=== PATIENT | female | born 1935 | race Caucasian/White ===

== ENCOUNTER 2019-09-24 09:54 | Outpatient (REF) | payer OTHER, SELFPAY ==
[2019-09-24 20:27] LABS: Abs Immature Grans 0.01 k/cumm (0.0-0.09); Absolute Basophil Count 0.03 k/cumm (0.0-0.2); Absolute Eosinophil Count 0.05 k/cumm (0.0-0.7); Absolute Lymphocyte Count 2.57 k/cumm (1.2-3.4); Absolute Monocyte Count 0.52 k/cumm (0.11-0.7); Basophils % 0.5; Eosinophils % 0.8; HGB 12.1 g/dL (12.0-15.5); Immature Grans % 0.2 %; Mean Corp. HGB Concentration 31.8 g/dL (32.0-36.0); Mean Corpuscular Hemoglobin 29.7 pg (27.0-33.0); Mean Corpuscular Volume 93.1 fL (80-95); Mean Platelet Volume 11.5 fL (8.0-11.0); Monocytes % 8.7; Neutrophils % 46.8; Platelet Count 236 x1000/uL (130-400); RBC 4.08 m/cumm (4.00-5.20); RBC Distribution Width 13.3 % (11.7-14.6); White Blood Cell Count 5.98 k/cumm (4.4-10.8)
[2019-09-24 20:50] LABS: ALT 20 U/L (14-59); AST 16 U/L (15-37); Alkaline Phosphatase 44 U/L (46-116); Anion Gap 8.4 mmol/L (3-11); BUN 19 mg/dL (7-18); Bilirubin, Total 0.6 mg/dL (0.2-1.0); CO2 28.6 mmol/L (21.0-32.0); CREATININE 0.87 mg/dL (0.55-1.02); Calcium 9.5 mg/dL (8.5-10.1); Calculated LDL 169 mg/dL (<100); Chloride 107 mmol/L (98-107); Cholesterol 257 mg/dL (<200); Glucose 92 mg/dL (74-106); HDL Cholesterol 72 mg/dL (40-60); Potassium 4.1 mmol/L (3.5-5.1); Sodium 144 mmol/L (136-145); Total Protein 7.3 g/dL (6.4-8.2); Triglyceride 81 mg/dL (<150)
== END 2019-09-24 10:14 ==
LOC: NCHCN 09:54
PROVIDERS: Visit Provider Nurse Practitioner Community Health
DX: R01.1 Cardiac murmur, unspecified (principal)
CPT/HCPCS: 80053; 80061; 84443; 85025

== ENCOUNTER 2020-06-20 18:34 | Emergency (ER) | payer OTHER, SELFPAY ==
[2020-06-20 18:43] VITALS: BP 176/62; PULSE 63; RESP 18; TEMP 36.4; O2SAT 98
--- NOTE | 2020-06-20 19:00 | DI.CT_ITS ---
EXAM: CT HEAD WO CLINICAL HISTORY: trauma, left forehead wound. TECHNIQUE: Imaging Protocol: Axial computed tomography images with coronal and sagittal reformatted images were created and reviewed COMPARISON: No exams were available for comparison FINDINGS: Ventricles and Extra axial spaces: Normal in size and morphology for the patient's age. Hemorrhage: None. Cerebral parenchyma: No acute territorial infarct is seen. There are areas of decreased attenuation white matter most consistent with chronic microvascular ischemic disease. Midline shift: None. Brainstem/Cerebellum: Normal. Calvarium: Normal. Visualized Paranasal sinuses/Mastoids: Clear. Soft Tissues: Mild swelling in the left periorbital region. IMPRESSION: No acute intracranial process. RADIATION DOSE DELIVERED: 653.92mGy.cm Total DLP DATA REPOSITORY: All CT scans at this facility are submitted to the National Radiology Data Registry (NRDR) Dose Index Registry (DIR) with the [employer] (ACR). RADIATION OPTIMIZATION: All CT scans at this facility use at least one of these dose optimization te chniques: automated exposure control; mA and/or kV adjustment per patient size (includes targeted exa ms where dose is matched to clinical indication); or iterative reconstruction.
--- NOTE | 2020-06-20 19:02 | ED.GENADUL_ITS ---
Discharge Plan Disposition Patient Disposition: HOME Condition: Stable Discharge Details Clinical Impression: Laceration Primary Care Provider: Unknown,Unknown ED Provider: Billie Negron Discharge Instructions Instructions: Care For Your Stitches (ED), Facial Laceration (ED) Additional Instructions: Please return immediately to the emergency department if you develop any new or worsening symptoms, if your condition does not improve as expected, or if you become otherwise concerned. It is extremely important that you call soon as possible to make an appointment to be seen in follow-up for this visit by your primary care doctor. You will need to have your stitches removed in 5 days as we discussed. Discharge Data Discharge Date/Time-TO BE ENTERED AT DEPARTURE: 06/20/20 21:25 Medical Decision Making Deja Peraza is an 84 y/o woman without reported history of medical problems who presented to the emergency department with forehead laceration after mechanical fall. On exam patient is well and nontoxic-appearing. Full range of motion of the neck, nontender to palpation. 3 cm linear laceration over the left eyebrow. Mild ecchymosis of the left orbit. No tenderness palpation of the orbit. Neurologically nonfocal. Concern for possible intracranial trauma, laceration needing suture repair. Exam/history at this time is not consistent with acute emergent cervical spine trauma, nonmechanical etiology of fall, significant trauma to the extremities, thorax, abdomen, facial fracture. Patient unsure of last tetanus, thinks it may be greater than 10 years ago, no immunizations in record. Plan for CT head, tetanus, laceration repair. CT head negative per radiology. Laceration repaired without complication, please see procedure note. I had a lengthy discussion with Patient regarding return to emergency department precautions, home care, and importance of outpatient follow-up. Pt verbalizes understanding of the plan and is amenable. Patient discharged to home with clear plan for outpatient follow-up. All questions were answered. Disposition decision was made weighing the risks and benefits of hospitalization versus outpatient treatment, the risk for further decompensation, and the patient's wishes. Medical Records Medical records reviewed: Yes I reviewed the patient's medical records. Imaging Data Radiologic Study: Attestation: I personally reviewed and interpreted this imaging study as follows: Radiologist's impression: Exam: CT Head Without Contrast Exam date and time: 06/20/2020 7:11 PM Age: 84 years old Clinical indication: Injury or trauma; Consciousness not specified; Without residual foreign body; Forehead; Injury date: 06/20/20; Injury details: Fall with laceration over L eye TECHNIQUE: Imaging protocol: Computed tomography of the head without contrast. COMPARISON: No relevant prior studies available. FINDINGS: Brain: There are moderate the confluent periventricular hypodensities consistent with chronic microischemic changes of white matter. There is no evidence of acute intracranial hemorrhage or mass effect on the ventricular system. There are no extra-axial fluid collections or midline shift. The posterior fossa shows mild cerebellar atrophy. Cerebral ventricles: There are prominent sulci and mild ventriculomegaly. Bones/joints: No acute fracture. Paranasal sinuses: There are no air-fluid levels. Mastoid air cells: The visualized mastoid air cells are well aerated. Soft tissues: Minimal soft tissue swelling left supraorbital region. Nasal cavity: There is jerson bullosa of the middle turbinates. IMPRESSION: 1. Age-related involutional changes of the brain. 2. Moderate cerebral small-vessel disease. 3. No acute intracranial abnormality. HPI General Mode of arrival: ambulatory . Date/Time Provider Initiated Documentation: 06/20/20 18:38 . Limitations to Documentation: no limitations . Information obtained by: patient, RN notes reviewed and old records reviewed . HPI Narrative: Deja Peraza is an 84-year-old woman without reported history of major medical problems who presents emergency department with forehead wound. Patient reports that she was walking from her kitchen to her laundry room when she tripped over one step and fell forward with her arms outstretched. Patient was wearing her glasses and thinks that she landed on her glasses with frame c utting her left forehead above the eyebrow. Glasses did not break. Patient reports that she did not lose consciousness. She denies any other pain or injury. Patient has been walking since the episode without issue. She states that her wounds were cleaned extensively with hydrogen peroxide at home by her family but given the size of wound she decided to come to emergency department. No visual changes, no vomiting, no numbness or weakness. Patient states that she was previously in her usual state of health, no recent fevers, cough, shortness of breath, or other atypical symptoms. Patient denies blood thinners or aspirin. Related Data Allergies Allergy/AdvReac Type Severity Reaction Status Date / Time No Known Allergies Allergy Unverified 06/20/20 18:45 General Stated Complaint: Laceration CHRISTOS: 3 Review of Systems Narrative: Constitutional: denies fevers Eyes: denies eye pain, visual changes ENT: denies ear pain, dental pain, sore throat Cardiovascular: denies chest pain Respiratory: denies SOB, cough GI: denies abdominal pain, vomiting, diarrhea : denies flank pain MSK: denies back pain, neck pain, arthralgias Skin: denies rash Neuro: denies headaches, numbness, weakness [facility] Social History Smoking/Tobacco Use Status: Never Smoking risk assessment performed?: Yes Alcohol Intake: current Alcohol Intake frequency: a few times a month Alcohol type: wine Drug use: Never Substance use type: does not use Do you feel safe at home: Yes Do you feel safe in your relationship?: Yes Exam Narrative Exam Narrative: Constitutional: well and [id number], pleasant, conversing normally HENT: normocephalic, mucous membranes moist, 3 cm linear laceration above left eyebrow Eyes: conjunctiva normal, sclera normal, pupils 3mm b/l, mild ecchymosis left orbit, frontal bone, orbital bone on the left nontender to palpation Neck: no stridor, normal ROM, trachea midline, no cervical spine tenderness palpation Resp: normal work of breathing, speaking in full sentences Cardio: normal rate, normal rhythm Skin: warm, dry, normal color, no rash Neuro: alert, not altered, grossly non-focal, normal tone, normal gait Ext: Moving all extremities equally Psych: normal mood, normal affect, normal behavior Course Vital Signs Vital signs: Vital Signs Temperature 36.4 C L 06/20/20 18:43 Pulse 63 06/20/20 18:43 Respiratory Rate 18 06/20/20 18:43 Blood Pressure 176/62 H 06/20/20 18:43 Pulse Oximetry 98 06/20/20 18:43 Temperature 36.4 C L 06/20/20 18:43 Temperature Source Skin 06/20/20 18:43 Pulse 63 06/20/20 18:43 Respiratory Rate 18 06/20/20 18:43 Respiratory Effort Non-Labored 06/20/20 18:50 Blood Pressure 176/62 H 06/20/20 18:43 Blood Pressure Position Sitting 06/20/20 18:43 Pulse Oximetry 98 06/20/20 18:43 Oxygen Delivery Method Room Air 06/20/20 18:43 Oxygen Flow Rate 0 06/20/20 18:43 Pain Level 2 06/20/20 18:43 Procedures Laceration Laceration 1: Site: face Side (If applicable): left Size (cm): 3 Description: linear Depth: simple, single layer Local Anesthetic: Lidocaine 1% Amount of anesthesia used (mL): 6 Pre-repair: wound explored, irrigated extensively and deep structures intact Skin layer closed with: nylon Size (cm): 5-0 Number of sutures: 5 Technique: simple, interrupted
--- NOTE | 2020-06-20 19:52 | DI.VRAD_ITS ---
PROCEDURE INFORMATION: Exam: CT Head Without Contrast Exam date and time: 06/20/2020 7:11 PM Age: 84 years old Clinical indication: Injury or trauma; Consciousness not specified; Without residual foreign body; Forehead; Injury date: 06/20/20; Injury details: Fall with laceration over L eye TECHNIQUE: Imaging protocol: Computed tomography of the head without contrast. COMPARISON: No relevant prior studies available. FINDINGS: Brain: There are moderate the confluent periventricular hypodensities consistent with chronic microischemic changes of white matter. There is no evidence of acute intracranial hemorrhage or mass effect on the ventricular system. There are no extra-axial fluid collections or midline shift. The posterior fossa shows mild cerebellar atrophy. Cerebral ventricles: There are prominent sulci and mild ventriculomegaly. Bones/joints: No acute fracture. Paranasal sinuses: There are no air-fluid levels. Mastoid air cells: The visualized mastoid air cells are well aerated. Soft tissues: Minimal soft tissue swelling left supraorbital region. Nasal cavity: There is jerson bullosa of the middle turbinates. IMPRESSION: 1. Age-related involutional changes of the brain. 2. Moderate cerebral small-vessel disease. 3. No acute intracranial abnormality. Dictated and Authenticated by: Casimiro Coleman MD. Ordering:NELSY Wise MD
[2020-06-20 21:26] VITALS: BP 176/62; PULSE 63; RESP 18; TEMP 36.4; O2SAT 98
== END 2020-06-20 21:25 | disposition home or self-care (01) ==
PROVIDERS: Emergency Provider Student in an Organized Health Care Education/Training Program
DX: S01.112A Laceration without foreign body of left eyelid and periocular area, initial encounter (principal); W10.8XXA Fall (on) (from) other stairs and steps, initial encounter
CPT/HCPCS: 12013; 90471; 99284; 70450

== ENCOUNTER 2020-10-11 14:13 | Observation (INO) | payer OTHER, SELFPAY ==
[2020-10-11] VITALS (38 sets, daily range): BP systolic 164–202; BP diastolic 49–154; PULSE 45–64; RESP 10–23; TEMP 36.6–36.8; O2SAT 76–99
--- NOTE | 2020-10-11 14:00 | DI.RAD_ITS ---
Exam(s) XR PORTABLE CHEST AP EXAM: XR PORTABLE CHEST AP CLINICAL HISTORY: syncope recurrent TECHNIQUE: COMPARISON: No exams were available for comparison FINDINGS: The heart may be mildly enlarged. Lungs are predominantly clear with slight interstitial prominence. No focal consolidation. No pleural effusion on this frontal film. IMPRESSION: Question mild cardiomegaly, otherwise no specific abnormality. RADIATION DOSE DELIVERED: Total DLP
--- NOTE | 2020-10-11 14:15 | RT.EKG_ITS ---
APPROVED REPORT Exam: Resting ECG Reason for Exam: passing out Patient Location: E HR:55 bpm ECG Measurements Heart Rate 55 AXIS NJ 173 P 74 QRSd 100 QRS 14 QT 454 T 35 QTc 435 Conclusion Sinus bradycardia...rate< 60 Probable left atrial enlargement...P >50mS, <-0.10mV V1 Anteroseptal infarct, old...Q >40mS, V1-V2
--- NOTE | 2020-10-11 14:43 | NUR.NOTE ---
Nursing Note: [phone] granddaughter
--- NOTE | 2020-10-11 15:31 | NUR.NOTE ---
Nursing Note: pt arrives to ED for near syncopal event when she was working on her garden this morning, denies LOC, no signs of pain or distress, pt arrives to ED for symptoms of weakness lightheadedness and dizziness, CBG is 92, neuro assessment WDL, pt accompanied by son, all needs attended, safety maintained, pt left comfortably in bed, will continue to monitor.
--- NOTE | 2020-10-11 15:34 | NUR.NOTE ---
radiology at bedside for chest x-ray
[2020-10-11 15:39] LABS: Abs Immature Grans 0.04 10^3/uL (0.0-0.06); Absolute Basophil Count 0.02 10^3/uL (0.0-0.2); Absolute Eosinophil Count 0.02 10^3/uL (0.0-0.7); Absolute Lymphocyte Count 1.88 10^3/uL (1.2-3.4); Absolute Monocyte Count 0.43 10^3/uL (0.1-0.8); Absolute Neutrophil Count 7.63 10^3/uL (1.2-6.7); Basophils % 0.2; Eosinophils % 0.2; Immature Grans % 0.4; Lymphocytes % 18.8; MCH 29.3 pg (27.0-33.0); MCHC 31.6 % (32.0-36.0); MCV 92.7 fL (80-95); MPV 11.4 fL (8.0-11.0); Monocytes % 4.3; Neutrophils % 76.1; Nucleated RBC 0 %; Platelet Count 213 10^3/uL (130-400); RDW 12.7 % (11.7-14.6); RDW-SD 43.3 fL; WBC 10.02 10^3/uL (4.4-10.8)
[2020-10-11] MEDS: Lactated Ringers 500 ML IV (15:56)
[2020-10-11 15:59] LABS: ALT 16 U/L (14-59); AST 14 U/L (15-37); Albumin 3.6 g/dL (3.4-5.0); Alkaline Phosphatase 45 U/L (46-116); Anion Gap 7.2 mmol/L (3-11); BUN 14 mg/dL (7-18); Bilirubin, Total 0.5 mg/dL (0.2-1.0); CO2 28.8 mmol/L (21.0-32.0); CREATININE 0.8 mg/dL (0.55-1.02); Chloride 107 mmol/L (98-107); Glucose 93 mg/dL (74-106); Potassium 3.8 mmol/L (3.5-5.1); Sodium 143 mmol/L (136-145); Total Protein 6.8 g/dL (6.4-8.2)
[2020-10-11 16:00] LABS: Troponin I < 0.05 ng/mL (<0.06)
[2020-10-11 16:03] LABS: Magnesium 2.1 mg/dL (1.8-2.4); TSH 0.58 uIU/mL (0.36-3.74)
[2020-10-11 17:09] LABS: Bilirubin Negative (Negative); Blood Negative (Negative); Clarity Clear (Clear); Glucose Negative (Negative); Ketones Trace mg/dL (Negative); Leukocyte Esterase Negative (Negative); Nitrite Negative (Negative); Urobilinogen 0.2 EU/dL (Up TO 0.2); pH 5.5 (5-8)
--- NOTE | 2020-10-11 17:22 | NUR.NOTE ---
BP discussed with Dr. Alvina Negron, will continue to monitor.
--- NOTE | 2020-10-11 17:42 | W.ED.GENAD ---
Discharge Plan Disposition Patient Disposition: [facility] INPATIENT Condition: Stable Discharge Details Clinical Impression: Syncope, Bradycardia Admit Date/Time: 10/11/20 20:04 Admit Provider: Tarun Brennan Attending Provider: Tarun Brennan Primary Care Provider: Unknown,Unknown ED Provider: Medhat Negron Discharge Data Discharge Date/Time-TO BE ENTERED AT DEPARTURE: 10/11/20 20:40 Medical Decision Making --84-year-old female here after syncopal episode. Patient currently asymptomatic. Neurologically intact. She is hypertensive on arrival. Patient saturating well in no respiratory distress. EKG was reviewed and interpreted by me: Sinus bradycardia 55 bpm, QTC 435, normal axis, no STEMI, nondiagnostic. --Labs reviewed and D-dimer is elevated. Plan to proceed to CT of the chest. --CT of the chest was interpreted by radiology: IMPRESSION: 1. No evidence of pulmonary embolism. No evidence of acute cardiopulmonary process. 2. Nonspecific 6 mm ill-defined parenchymal lung nodule within the right upper lobe. For patients at low risk (minimal or absent history of smoking and of other known risk factors), recommend CT Chest at 6-12 months, then consider CT Chest at 18-24 months. For patients at high risk (history of smoking or of other known risk factors), recommend CT Chest at 6-12 months, then CT Chest at 18-24 months. (Reference: Alonso) 1946--Patient reassessed she has remained hypertensive here with systolic as high as 200. Current blood pressure is 160. I did observe patient having intermittent bradycardia with heart rate in the 40s on cardiac sonographer. Plan to admit for syncope, bradycardia and hypertension. I spoke with Dr. Brennan, on-call hospitalist, discussed ED presentation course, he will admit the patient request bridging orders were placed to the floor. Lab delay - second troponin is pending. HPI General Mode of arrival: ambulatory. Date/Time Provider Initiated Documentation: 10/11/20 14:14. Limitations to Documentation: no limitations. Information obtained by: patient. HPI Narrative: 84-year-old female presents with chief complaint of syncope. Patient notes she was working in her garden just prior to arrival and she slowly became lightheaded and passed out. She notes that she did lose consciousness. Symptoms were severe with no modifiers. She notes she attempted to stand but was too weak and had to crawl back to her house. Since this time she had some mild nausea. She denies headache, chest pain, shortness of breath, abdominal pain. No weakness or numbness. Patient denies preceding symptoms. She states that she did not eat or drink much this morning. Related Data Home Medications Medication Instructions Recorded Confirmed Unknown [No Known Home Meds] 10/11/20 10/11/20 Allergies Allergy/AdvReac Type Severity Reaction Status Date / Time shellfish derived Allergy Anaphylaxis Unverified 10/11/20 14:34 General Stated Complaint: Dizzy/Sync CHRISTOS: 2 Review of Systems All systems reviewed & are unremarkable except as noted in HPI and below Constitutional Constitutional: Denies fever(s), Denies headache(s) and Denies weakness Eyes Eyes: Denies loss of vision ENT Ears, Nose, Mouth, and Throat: Denies headache(s) Gastrointestinal Gastrointestinal: Denies abdominal pain Musculoskeletal Musculoskeletal: Denies tingling Neurologic Neurologic: Denies headache(s), Denies localized weakness, Denies loss of vision, Denies tingling and Denies weakness [facility] Social History Smoking/Tobacco Use Status: Former Tobacco Use Smoking risk assessment performed?: Yes Alcohol Intake: current Alcohol Intake frequency: a few times a month Alcohol type: wine Drug use: Never Substance use type: does not use Do you feel safe at home: Yes Do you feel safe in your relationship?: Yes Exam Const General: cooperative and no acute distress HENMT Mouth: moist mucous membranes Eyes Conjunctivae: normal conjunctivae Sclera: normal sclerae Pupils: PERRL EOM: EOM intact bilaterally Neck Neck: trachea midline and supple Resp Auscultation: clear to auscultation bilaterally, no rales, no rhonchi and no wheezes Cardio Rate: regular rate and not tachycardic Rhythm: regular rhythm GI Palpation: soft, not firm, no guarding, no masses, not rigid and nontender Skin General skin exam: no rashes or lesions noted Neuro General: patient alert, patient awake, patient oriented x3 and tone normal Cranial Nerves: CN's II-XI intact bilaterally Cognition: normal cognition Motor: strength 5/5 throughout Sensory Exam: no sensory deficits noted Extrem General: no calf tenderness and no edema Psych Appearance: grossly normal Mental Status: mental status grossly normal Speech and Movement: speech and movement normal Course Vital Signs Vital signs: Vital Signs Temperature 36.8 C 10/11/20 14:21 Pulse 56 L 10/11/20 14:21 Respiratory Rate 18 10/11/20 14:21 Blood Pressure 164/99 H 10/11/20 14:21 Pulse Oximetry 99 10/11/20 14:21 Temperature 36.8 C 10/11/20 14:21 Temperature Source Temporal Artery Scan 10/11/20 14:21 Pulse 56 L 10/11/20 14:21 Respiratory Rate 18 10/11/20 14:21 Respiratory Effort 10/11/20 15:26 Respiratory Depth Normal 10/11/20 15:26 Respiratory Pattern Normal 10/11/20 15:26 Blood Pressure 176/68 H 10/11/20 16:47 Blood Pressure Position Supine 10/11/20 14:21 Pulse Oximetry 99 10/11/20 14:21 Oxygen Delivery Method Room Air 10/11/20 14:21 Oxygen Flow Rate 0 10/11/20 14:21 Pain Level 2 10/11/20 14:21 Lab/Test Results Lab/Test Results: Laboratory Tests Range/Units 10/11/20 10/11/20 10/11/20 15:30 15:30 15:30 WBC (4.4-10.8) 10^3/uL 10.02 RBC (3.93-5.22) 10^6/uL 4.10 Hgb (11.2-15.7) g/dL 12.0 Hct (36.0-46.0) % 38.0 MCV (80-95) fL 92.7 MCH (27.0-33.0) pg 29.3 MCHC (32.0-36.0) % 31.6 L RDW (11.7-14.6) % 12.7 Plt Count (130-400) 10^3/uL 213 MPV (8.0-11.0) fL 11.4 H Immature Gran % 0.4 Neutrophils % 76.1 Lymphocytes % 18.8 Monocytes % 4.3 Eosinophils % 0.2 Basophils % 0.2 Nucleated RBC % % 0 Absolute Neutrophils (1.2-6.7) 10^3/uL 7.63 H Absolute Lymphocytes (1.2-3.4) 10^3/uL 1.88 Absolute Monocytes (0.1-0.8) 10^3/uL 0.43 Absolute Eosinophils (0.0-0.7) 10^3/uL 0.02 Absolute Basophils (0.0-0.2) 10^3/uL 0.02 Sodium (136-145) mmol/L 143 Potassium (3.5-5.1) mmol/L 3.8 Chloride (98-107) mmol/L 107 Carbon Dioxide (21.0-32.0) mmol/L 28.8 Anion Gap (3-11) mmol/L 7.2 BUN (7-18) mg/dL 14 Creatinine (0.55-1.02) mg/dL 0.8 Estimated GFR/1.73 m2 (mL/min/1.73m2) >= 60.00 Glucose (74-106) mg/dL 93 Calcium (8.5-10.1) mg/dL 9.0 Magnesium (1.8-2.4) mg/dL 2.1 Total Bilirubin (0.2-1.0) mg/dL 0.5 AST (15-37) U/L 14 L ALT (14-59) U/L 16 Alkaline Phosphatase (46-116) U/L 45 L Troponin I (<0.06) ng/mL < 0.05 Total Protein (6.4-8.2) g/dL 6.8 Albumin (3.4-5.0) g/dL 3.6 TSH (0.36-3.74) uIU/mL 0.58 Urine Color (Yellow) Urine Clarity (Clear) Urine pH (5-8) Ur Specific Taberg (1.005-1.025) Urine Protein (Negative) mg/dL Urine Ketones (Negative) mg/dL Urine Blood (Negative) Urine Nitrite (Negative) Urine Bilirubin (Negative) Urine Urobilinogen (Up TO 0.2) EU/dL Ur Leukocyte Esterase (Negative) Urine Glucose (Negative) mg/dL Range/Units 10/11/20 16:50 WBC (4.4-10.8) 10^3/uL RBC (3.93-5.22) 10^6/uL Hgb (11.2-15.7) g/dL Hct (36.0-46.0) % MCV (80-95) fL MCH (27.0-33.0) pg MCHC (32.0-36.0) % RDW (11.7-14.6) % Plt Count (130-400) 10^3/uL MPV (8.0-11.0) fL Immature Gran % Neutrophils % Lymphocytes % Monocytes % Eosinophils % Basophils % Nucleated RBC % % Absolute Neutrophils (1.2-6.7) 10^3/uL Absolute Lymphocytes (1.2-3.4) 10^3/uL Absolute Monocytes (0.1-0.8) 10^3/uL Absolute Eosinophils (0.0-0.7) 10^3/uL Absolute Basophils (0.0-0.2) 10^3/uL Sodium (136-145) mmol/L Potassium (3.5-5.1) mmol/L Chloride (98-107) mmol/L Carbon Dioxide (21.0-32.0) mmol/L Anion Gap (3-11) mmol/L BUN (7-18) mg/dL Creatinine (0.55-1.02) mg/dL Estimated GFR/1.73 m2 (mL/min/1.73m2) Glucose (74-106) mg/dL Calcium (8.5-10.1) mg/dL Magnesium (1.8-2.4) mg/dL Total Bilirubin (0.2-1.0) mg/dL AST (15-37) U/L ALT (14-59) U/L Alkaline Phosphatase (46-116) U/L Troponin I (<0.06) ng/mL Total Protein (6.4-8.2) g/dL Albumin (3.4-5.0) g/dL TSH (0.36-3.74) uIU/mL Urine Color (Yellow) Yellow Urine Clarity (Clear) Clear Urine pH (5-8) 5.5 Ur Specific Taberg (1.005-1.025) 1.010 Urine Protein (Negative) mg/dL Negative Urine Ketones (Negative) mg/dL Trace H Urine Blood (Negative) Negative Urine Nitrite (Negative) Negative Urine Bilirubin (Negative) Negative Urine Urobilinogen (Up TO 0.2) EU/dL 0.2 Ur Leukocyte Esterase (Negative) Negative Urine Glucose (Negative) mg/dL Negative
[2020-10-11 17:56] LABS: D-Dimer 2936 ng/mlFEU (<500)
--- NOTE | 2020-10-11 18:00 | DI.CT_ITS ---
Exam(s) CT CHEST PE CTA EXAM: CT CHEST PE CTA CLINICAL HISTORY: syncope, elevated ddimer. TECHNIQUE: Imaging Protocol: CT angiography of the chest was performed using pulmonary embolus brian col. Multi planar reconstructions were performed. CONTRAST MATERIAL: Intravenous: Omnipaque 350 Contrast volume: 80 cc COMPARISON: No exams were available for comparison FINDINGS: CHEST: PULMONARY ARTERIES: There are no intraluminal filling defects to suggest acute pulmonary emboli. LUNGS: There is a small 5 millimeter noncalcified nodule in the sub apical right upper lobe region. Mosaic pattern both lung jackson involving mostly lower lobes consistent with some air trapping. No a ir bronchograms. No pleural effusions.. There are no pleural effusions. MEDIASTINUM: There is no hilar nor mediastinal adenopathy. Thyroid appears nodular. CARDIAC: Cardiomegaly. No pericardial effusion.Caliber of the thoracic aorta is within normal limits . There is no significant shift of the interventricular septum. PARTIALLY VISUALIZED UPPERMOST ABDOMEN: No significant findings. OSSEOUS: No significant osseous lesions.. IMPRESSION: 1. No evidence of acute pulmonary emboli. No evidence of pulmonary infarction.No pleural effusions. 2. There is mosaic pattern in both lower lobes consistent with air trapping. Follow-up recommended. No pleural effusions. 3. There is a 6 millimeter nodule in the right upper lobe. Requires appropriate imaging follow-up. Recommend follow-up CT scan in 6 months. RADIATION DOSE DELIVERED: 351.24mGy.cm Total DLP DATA REPOSITORY: All CT scans at this facility are submitted to the National Radiology Data Registry (NRDR) Dose Index Registry (DIR) with the [employer] (ACR). RADIATION OPTIMIZATION: All CT scans at this facility use at least one of these dose optimization te chniques: automated exposure control; mA and/or kV adjustment per patient size (includes targeted exa ms where dose is matched to clinical indication); or iterative reconstruction.
--- NOTE | 2020-10-11 18:00 | NUR.NOTE ---
manual BP taken as per request by family member, BP is 202/69 Dr. Negron aware, will continue to monitor.
[2020-10-11] MEDS: Omnipaque 350 MG/ML 100 ML BTL IJ (18:51)
[2020-10-11] MEDS: Normal Saline - Diluent 50 ML VIAL IV (18:52)
[2020-10-11] MEDS: Normal Saline Flush 10 ML SYR IVP (18:53)
--- NOTE | 2020-10-11 19:10 | DI.VRAD_ITS ---
PROCEDURE INFORMATION: Exam: CTA Chest With Contrast Exam date and time: 10/11/2020 6:02 PM Age: 84 years old Clinical indication: Abnormal findings; Abnormal diagnostic tests; Patient HX: Syncope, elevated d-dimer TECHNIQUE: Imaging protocol: Computed tomographic angiography of the chest with contrast. 3D rendering (Not supervised by radiologist): MIP and/or 3D reconstructed images were created by the technologist. Radiation optimization: All CT scans at this facility use at least one of these dose optimization techniques: automated exposure control; mA and/or kV adjustment per patient size (includes targeted exams where dose is matched to clinical indication); or iterative reconstruction. Contrast material: OMNIPAQUE 350; Contrast volume: 80 ml; Contrast route: INTRAVENOUS (IV); COMPARISON: CR XR PORTABLE CHEST AP 10/11/2020 3:30 PM FINDINGS: Pulmonary arteries: Normal. No pulmonary emboli. Aorta: Atherosclerotic calcifications of the aortic arch. Lungs: Ill-defined 6 mm parenchymal lung nodule within the superior segment of the right upper lobe (series 7, image 100). Bilateral mild centrilobular emphysematous changes. Pleural spaces: Unremarkable. No pneumothorax. No pleural effusion. Heart: Unremarkable. No cardiomegaly. No pericardial effusion. Lymph nodes: Unremarkable. No enlarged lymph nodes. Liver: Several calcifications throughout the liver compatible with granulomas. Otherwise unremarkable. Spleen: Multiple calcifications throughout the spleen compatible with granulomas. Bones/joints: Unremarkable. No acute fracture. Soft tissues: Unremarkable. IMPRESSION: 1. No evidence of pulmonary embolism. No evidence of acute cardiopulmonary process. 2. Nonspecific 6 mm ill-defined parenchymal lung nodule within the right upper lobe. For patients at low risk (minimal or absent history of smoking and of other known risk factors), recommend CT Chest at 6-12 months, then consider CT Chest at 18-24 months. For patients at high risk (history of smoking or of other known risk factors), recommend CT Chest at 6-12 months, then CT Chest at 18-24 months. (Reference: Alonso) References: Alonso Hernadez et al. Guidelines for Management of Incidental Pulmonary Nodules Detected on CT Images: From the Fleischner Society 2017. Radiology. 2017;284(1):228-243. 3. Bilateral mild centrilobular emphysematous changes. Dictated and Authenticated by: Saulo Maya MD. Ordering:SKIP Meléndez MD
--- NOTE | 2020-10-11 19:19 | NUR.NOTE ---
pt returns from CT scan, VS stable, no signs of pain or distress, aaox3, pt is comfortable, son is at bedside, all needs attended, will continue to monitor.
[2020-10-11 20:13] LABS: Troponin I < 0.05 ng/mL (<0.06)
[2020-10-11 20:25] LABS: Source Nasal/Nares
--- NOTE | 2020-10-11 20:35 | NUR.NOTE ---
report given to nurse kenyon, pt is for admission to room 206
[2020-10-11 21:33] LABS: COVID-19 PCR Negative (Negative)
[2020-10-12 03:58] VITALS: BP 167/56; PULSE 48; RESP 20; TEMP 36.8; O2SAT 95
[2020-10-12 07:28] VITALS: BP 181/75; PULSE 64; RESP 19; TEMP 36.2; O2SAT 99
[2020-10-12] MEDS: Enoxaparin 40 MG/0.4 ML SYR SC (08:24)
--- NOTE | 2020-10-12 08:32 | PDOC.CMIN ---
- If Service Date Differs Date of service: 10/12/20 Time of Service: 08:32 Care Management Initial Assess REASON FOR HOSPITALIZATION:: Syncope, Head Injury, Bradycardia PAST MEDICAL HISTORY/PAST SURGICAL HISTORY:: Unknown past medical/surgical history PREVIOUS FUNCTIONAL STATUS/SOCIAL/FAMILY SUPPORTS:: Deja lives at her home in [place], [place] with her , son and grandson. She does not drive, but has adaquate family support with transportation. Deja has 5 children, 3 are living. She describes her Granddaughter Yeni Prince ( ) as being particulary helpful and supportive with her healthcare needs. CURRENT FUNCTIONAL STATUS:: Deja was sitting up in her chair when CM met with her. Deja was pleasant and easily engaged in conversation. Deja reports that she is feeling better and shares that she feels her syncope episode was related to over doing it, in her flower garden yesterday and not drinking enough water. She is feeling much better today, and strongly feels she is ready to go home. ADVANCE DIRECTIVES:: None on file. Deja reports that she is in the process of completing them through her assistant city attorney. Has patient been provided with info about the portal/API?: Yes Did the patient sign up for the portal?: No CODE STATUS:: Full Code INSURANCE COVERAGE / FINANCIAL ISSUES:: Commercial Medicare Replacement. [facility] CURRENT HOME/COMMUNITY SERVICES/EQUIPMENT:: None at this time. Deja is independant at baseline PRIMARY CARE PHYSICIAN:: unknown, reports that she sees her PCP in [place] infrequently POTENTIAL DISCHARGE NEEDS:: Review of discharge instructions and plan, identify patients PCP and suggest she follow up with them post discharge and routinely. PATIENT/FAMILY EDUCATION NEEDS:: Review of discharge instructions, follow up plan and ask me three. ANTICIPATED BARRIERS TO DISCHARGE:: None at this time TRANSPORTATION:: Via private vehicle with her Bert or Granddaughter Yeni Florence. PLAN:: Deja will likely be discharge home with via private vehicle when medically cleared with no new services. CM will continue to support discharge needs.
--- NOTE | 2020-10-12 09:09 | HPE_ITS ---
Date of service: 10/12/20 Time of Service: 09:09 Assessment and Plan Assessment and plan (1) Syncope: Status: Chronic Assessment and plan: Etiology is unclear but probably related to the bradycardia. (2) Bradycardia: Status: Acute Assessment and plan: She may need a pacemaker implanted. Will follow her cardiac telemetry. (3) Systolic murmur: Status: Acute Assessment and plan: Will check echocardiogram. (4) Head injury: Status: Acute Assessment and plan: Will check a Head CT today. (5) Lung nodule: Status: Acute Assessment and plan: she has a history of tobacco use but quit about 10 years ago. Will need a follow up CT of her lungs. History of Present Illness History of Present Illness Chief Complaint: syncope, head injury, weakness Narrative: This 84-year-old female was admitted yesterday with a syncopal episode. She was in her garden taking the andrade off of her plants and suddenly became ataxic, lightheaded and fell to the ground. She did hit the right side of her head and felt very weak and had to crawl up a incline in her yard where she went back up to her front porch. She sat down for a while and was able to get the strength to walk around her side guard and go in. She talked with her family lives with her and she came to the hospital to be checked. She thinks she may have been unconscious for 2 to 3 minutes. She actually rolled down the incline at her yard when this was going on. She rememb ers doing a dance as she had this episode happened. She has never had anything like this happen in the past. She has a slight headache today but otherwise feels much better. She is not taking any medicine. The evaluation emergency department better if he has only sinus bradycardia and she has a small lung nodule. She did quit smoking about 10 years ago. She did have an elevated dimer and had a chest CTA. She is anxious to go home today if possible. Review of Systems Constitutional Constitutional: Denies body ache(s), Denies chills, Denies fever(s), Reports headache(s), Denies lethargy and Reports weakness Eyes Eyes: Denies loss of vision ENT Ears, Nose, Mouth, and Throat: Reports headache(s) Cardiovascular Cardiovascular: Denies chest pain, Reports syncope, Denies rapid heart rate, Denies irregular heart rhythm, Reports lightheadedness, Denies palpitations and Denies dyspnea Respiratory Respiratory: Denies dyspnea Gastrointestinal Gastrointestinal: Denies diarrhea, Denies nausea and Denies vomiting Genitourinary Genitourinary: Denies difficulty voiding Musculoskeletal Musculoskeletal: Denies arthralgias and Denies joint swelling Neurologic Neurologic: Reports syncope, Reports headache(s), Denies loss of vision and Reports weakness Endocrine Endocrine: Denies palpitations [facility] Social History Smoking/Tobacco Use Status: Former Tobacco Use Smoking risk assessment performed?: Yes Alcohol Intake: current Alcohol Intake frequency: a few times a month Alcohol type: wine Drug use: Never Substance use type: does not use Do you feel safe at home: Yes Do you feel safe in your relationship?: Yes Meds Allergies and Home Medications Allergies Allergy/AdvReac Type Severity Reaction Status Date / Time shellfish derived Allergy Anaphylaxis Unverified 10/11/20 14:34 Home Medications Medication Instructions Recorded Confirmed Type Unknown [No Known Home Meds] 10/11/20 10/11/20 History Exam Const General: cooperative and healthy appearing Orientation: alert and awake Eyes General: appearance normal, both eyes and all related structures Eyelids: eyelids normal Sclera: sclerae normal Cornea: corneas normal Neck Neck: normal visual inspection and no lymphadenopathy Resp Effort & Inspection: normal respiratory effort and able to speak in complete sentences Auscultation: no rales, no rhonchi and no wheezes Cardio Jugular venous pressure: no JVD Rate: bradycardic Rhythm: regular rhythm Heart Sounds: S1 normal, S2 normal and murmur Other: 1/6 PRAMOD heard best at upper LSB. No diastolic murmurs. GI Inspection: normal to inspection Palpation: soft, no hepatosplenomegaly and nontender Neuro General: patient alert and patient awake Cranial Nerves: CN's II-XI intact bilaterally and hearing normal Speech: speech normal Gait: normal gait Extrem General: normal to inspection, no cyanosis and no edema Results Labs Result diagrams: 10/11/20 15:30 10/11/20 15:30 Labs: Laboratory Results - last 24 hr 10/11/20 10/11/20 10/11/20 15:30 15:30 15:30 WBC 10.02 RBC 4.10 Hgb 12.0 Hct 38.0 MCV 92.7 MCH 29.3 MCHC 31.6 L RDW 12.7 Plt Count 213 MPV 11.4 H Immature Gran % 0.4 Neutrophils % 76.1 Lymphocytes % 18.8 Monocytes % 4.3 Eosinophils % 0.2 Basophils % 0.2 Nucleated RBC % 0 Absolute Neutrophils 7.63 H Absolute Lymphocytes 1.88 Absolute Monocytes 0.43 Absolute Eosinophils 0.02 Absolute Basophils 0.02 D-Dimer Sodium 143 Potassium 3.8 Chloride 107 Carbon Dioxide 28.8 Anion Gap 7.2 BUN 14 Creatinine 0.8 Estimated GFR/1.73 m2 >= 60.00 Glucose 93 Calcium 9.0 Magnesium 2.1 Total Bilirubin 0.5 AST 14 L ALT 16 Alkaline Phosphatase 45 L Troponin I < 0.05 Total Protein 6.8 Albumin 3.6 TSH 0.58 Urine Color Urine Clarity Urine pH Ur Specific [place] Urine Protein Urine Ketones Urine Blood Urine Nitrite Urine Bilirubin Urine Urobilinogen Ur Leukocyte Esterase Urine Glucose COVID-19 Source SARS-CoV-2 (PCR) 10/11/20 10/11/20 10/11/20 16:50 17:14 19:40 WBC RBC Hgb Hct MCV MCH MCHC RDW Plt Count MPV Immature Gran % Neutrophils % Lymphocytes % Monocytes % Eosinophils % Basophils % Nucleated RBC % Absolute Neutrophils Absolute Lymphocytes Absolute Monocytes Absolute Eosinophils Absolute Basophils D-Dimer 2936 H Sodium Potassium Chloride Carbon Dioxide Anion Gap BUN Creatinine Estimated GFR/1.73 m2 Glucose Calcium Magnesium Total Bilirubin AST ALT Alkaline Phosphatase Troponin I < 0.05 Total Protein Albumin TSH Urine Color Yellow Urine Clarity Clear Urine pH 5.5 Ur Specific [place] 1.010 Urine Protein Negative Urine Ketones Trace H Urine Blood Negative Urine Nitrite Negative Urine Bilirubin Negative Urine Urobilinogen 0.2 Ur Leukocyte Esterase Negative Urine Glucose Negative COVID-19 Source SARS-CoV-2 (PCR) 10/11/20 20:19 WBC RBC Hgb Hct MCV MCH MCHC RDW Plt Count MPV Immature Gran % Neutrophils % Lymphocytes % Monocytes % Eosinophils % Basophils % Nucleated RBC % Absolute Neutrophils Absolute Lymphocytes Absolute Monocytes Absolute Eosinophils Absolute Basophils D-Dimer Sodium Potassium Chloride Carbon Dioxide Anion Gap BUN Creatinine Estimated GFR/1.73 m2 Glucose Calcium Magnesium Total Bilirubin AST ALT Alkaline Phosphatase Troponin I Total Protein Albumin TSH Urine Color Urine Clarity Urine pH Ur Specific [place] Urine Protein Urine Ketones Urine Blood Urine Nitrite Urine Bilirubin Urine Urobilinogen Ur Leukocyte Esterase Urine Glucose COVID-19 Source Nasal/Nares SARS-CoV-2 (PCR) Negative Last Vital Signs Temp 36.2 C L 10/12/20 07:28 Pulse 64 10/12/20 07:28 Resp 19 10/12/20 07:28 BP 181/75 H 10/12/20 07:28 Pulse Ox 99 10/12/20 07:28
[2020-10-12 11:19] VITALS: BP 152/84; PULSE 60; RESP 19; TEMP 36.5; O2SAT 97
[2020-10-12 11:55] VITALS: PULSE 49
--- NOTE | 2020-10-12 12:10 | DI.CT_ITS ---
Exam(s) CT HEAD WO EXAM: CT HEAD WO CLINICAL HISTORY: head injury, loss of consciousness.. TECHNIQUE: Imaging Protocol: Axial computed tomography images with coronal and sagittal reformatted images were created and reviewed COMPARISON: CT CT HEAD WO from 06/20/2020 FINDINGS: There are no skull fractures nor fluid in the visualized paranasal sinuses. There is no evidence of intracranial hemorrhage, mass effect, or shift of midline structures. There are no extra-axial fluid collections. The ventricles are not enlarged or shifted and there is no blo od within the ventricular system nor within the basal cisterns. No obvious abnormality evident in the cerebellar hemispheres nor within sonja, midbrain, and thalami. There is abundant bilateral periventricular hypodensity consistent with chronic small vessel disease . This is unchanged from June 2000 CT scan. No obvious new territorial infarction evident. IMPRESSION: No acute intracranial findings on this noninfused CT scan of the brain. Again noted is abundant bilateral periventricular white matter disease, unchanged from the prior CT s can of June 2020. RADIATION DOSE DELIVERED: 667.24mGy.cm Total DLP DATA REPOSITORY: All CT scans at this facility are submitted to the National Radiology Data Registry (NRDR) Dose Index Registry (DIR) with the [employer] (ACR). RADIATION OPTIMIZATION: All CT scans at this facility use at least one of these dose optimization te chniques: automated exposure control; mA and/or kV adjustment per patient size (includes targeted exa ms where dose is matched to clinical indication); or iterative reconstruction.
--- NOTE | 2020-10-12 14:54 | CHAPLAIN ---
Deja was up walking around her room when I visited. She said she expects to be discharged home to [facility] later today.
--- NOTE | 2020-10-12 15:14 | W.PM.DS.N ---
Date of service: 10/12/20 Time of Service: 15:15 DS: Diagnosis Discharge Diagnosis (1) Syncope: Status: Chronic (2) Bradycardia: Status: Acute (3) Systolic murmur: Status: Acute (4) Head injury: Status: Acute (5) Lung nodule: Status: Acute Discharge Plan Disposition Patient Disposition: HOME Condition: Stable Discharge Details Reason For Visit: Bradicardia,Syncope Admit Date/Time: 10/11/20 20:04 Admit Provider: Tarun Brennan Attending Provider: Tarun Brennan Primary Care Provider: Unknown,Unknown Hospital Course Hospital Course: This 84-year-old female was admitted yesterday with a syncopal episode. She was in her garden taking the andrade off of her plants and suddenly became ataxic, lightheaded and fell to the ground. She did hit the right side of her head and felt very weak and had to crawl up a incline in her yard where she went back up to her front porch. She sat down for a while and was able to get the strength to walk around her side guard and go in. She talked with her family lives with her and she came to the hospital to be checked. She thinks she may have been unconscious for 2 to 3 minutes. She actually rolled down the incline at her yard when this was going on. She remembers doing a dance as she had this episode happened. She has never had anything like this happen in the past. She had a slight headache but otherwise feels much better. The evaluation emergency department only shows sinus bradycardia and she has a small lung nodule. She did quit smoking about 10 years ago. She did have an elevated dimer and had a chest CTA. She has remained on telemetry and has been sinus rhythm, sinus nilo. echocardiogram pending at discharge. she has had no further symptoms and wants to be discharged home. we will apply a phototypesetting equipment monitor at discharge and follow up scheduled with pcp. recommendations are for follow up chest CT outpatient. discharge discussed with DR Gonzalez. Home Meds and New Rx's Prescriptions: No Action No Known Home Meds RF: 0 Discharge Instructions Instructions: Syncope (DC) Additional Instructions: wear phototypesetting equipment monitor as directed Referrals: Unknown,Unknown [Primary Care Provider] - (follow up with primary care provider) Activity:: Activity as Tolerated Equipment/Supplies:: No Equipment Needed Diet:: As Tolerated Discharge Orders Discharge Orders: Discharge Order (Routine); Ordered 10/12/20 Ordered By: Jania Durbin Other Ambulatory Orders: 14 Day Real Estate Marketing Coordinator (Routine) Timeframe: 10 Day Facility: [facility] - Location: Respiratory Therapy Ordered By: Jania Durbin DS: Summary Time Spent with Patient providing and/or coordinating discharge services: Less than 30 minutes Status at Discharge Functional status at discharge: independent ambulation Overall status at discharge: patient is back to baseline Mental Status: mental status grossly normal Speech and Movement: speech and movement normal Mood: congruent mood Affect: normal affect Exam Const General: cooperative and no acute distress HENMT Mouth: moist mucous membranes Eyes Conjunctivae: normal conjunctivae Sclera: normal sclerae Pupils: PERRL EOM: EOM intact bilaterally Neck Neck: trachea midline and supple Resp Auscultation: clear to auscultation bilaterally, no rales, no rhonchi and no wheezes Cardio Rate: regular rate Rhythm: regular rhythm GI Palpation: soft, not firm, no guarding, no masses, not rigid and nontender Skin General skin exam: no rashes or lesions noted Neuro General: patient alert, patient awake, patient oriented x3 and tone normal Cranial Nerves: CN's II-XI intact bilaterally Cognition: normal cognition Motor: strength 5/5 throughout Sensory Exam: no sensory deficits noted Extrem General: no calf tenderness and no edema Psych Appearance: grossly normal Mental Status: mental status grossly normal Speech and Movement: speech and movement normal Mood: congruent mood Affect: normal affect DS: Data Vitals/I&O Vitals and I&O: Vital Signs Temperature 36.5 C 10/12/20 11:19 Temperature Source Tympanic 10/12/20 11:19 Pulse 60 10/12/20 11:19 Pulse Rhythm Regular 10/12/20 10:00 Pulse 54 L 10/11/20 19:18 Respiratory Rate 19 10/12/20 11:19 Respiratory Effort Non-Labored 10/12/20 10:00 Respiratory Depth Normal 10/12/20 10:00 Respiratory Pattern Normal 10/12/20 10:00 Blood Pressure 152/84 H 10/12/20 11:19 Blood Pressure Mean 84 10/11/20 19:18 Blood Pressure Position Supine 10/11/20 14:21 Pulse Oximetry 97 10/12/20 11:19 Oxygen Delivery Method Room Air 10/12/20 11:19 Oxygen Flow Rate 0 10/12/20 11:19 Pain Level 2 10/11/20 14:21 Intake & Output 10/11/20 10/12/20 10/12/20 23:59 11:59 23:59 Intake Total 500 / 500 480 / 720 240 / 720 Balance 500 / 500 480 / 720 240 / 720 Weight 64.4 kg Intake: IV 500 / 500 Oral 480 / 720 240 / 720 Other: Urine Appearance Clear Comment Patient reports normal urination, she uses the toilet in her room independently. Stool Size Large Stool Characteristics Soft Data Completed and Pending Labs on day of discharge: Labs from last 24 hours 10/11/20 10/11/20 10/11/20 20:19 19:40 17:14 WBC RBC Hgb Hct MCV MCH MCHC RDW Plt Count MPV Immature Gran % Neutrophils % Lymphocytes % Monocytes % Eosinophils % Basophils % Nucleated RBC % Absolute Neutrophils Absolute Lymphocytes Absolute Monocytes Absolute Eosinophils Absolute Basophils D-Dimer 2936 H Sodium Potassium Chloride Carbon Dioxide Anion Gap BUN Creatinine Estimated GFR/1.73 m2 Glucose Calcium Magnesium Total Bilirubin AST ALT Alkaline Phosphatase Troponin I < 0.05 Total Protein Albumin TSH Urine Color Urine Clarity Urine pH Ur Specific [place] Urine Protein Urine Ketones Urine Blood Urine Nitrite Urine Bilirubin Urine Urobilinogen Ur Leukocyte Esterase Urine Glucose COVID-19 Source Nasal/Nares SARS-CoV-2 (PCR) Negative 10/11/20 10/11/20 10/11/20 16:50 15:30 15:30 WBC 10.02 RBC 4.10 Hgb 12.0 Hct 38.0 MCV 92.7 MCH 29.3 MCHC 31.6 L RDW 12.7 Plt Count 213 MPV 11.4 H Immature Gran % 0.4 Neutrophils % 76.1 Lymphocytes % 18.8 Monocytes % 4.3 Eosinophils % 0.2 Basophils % 0.2 Nucleated RBC % 0 Absolute Neutrophils 7.63 H Absolute Lymphocytes 1.88 Absolute Monocytes 0.43 Absolute Eosinophils 0.02 Absolute Basophils 0.02 D-Dimer Sodium 143 Potassium 3.8 Chloride 107 Carbon Dioxide 28.8 Anion Gap 7.2 BUN 14 Creatinine 0.8 Estimated GFR/1.73 m2 >= 60.00 Glucose 93 Calcium 9.0 Magnesium Total Bilirubin 0.5 AST 14 L ALT 16 Alkaline Phosphatase 45 L Troponin I < 0.05 Total Protein 6.8 Albumin 3.6 TSH Urine Color Yellow Urine Clarity Clear Urine pH 5.5 Ur Specific [place] 1.010 Urine Protein Negative Urine Ketones Trace H Urine Blood Negative Urine Nitrite Negative Urine Bilirubin Negative Urine Urobilinogen 0.2 Ur Leukocyte Esterase Negative Urine Glucose Negative COVID-19 Source SARS-CoV-2 (PCR) 10/11/20 15:30 WBC RBC Hgb Hct MCV MCH MCHC RDW Plt Count MPV Immature Gran % Neutrophils % Lymphocytes % Monocytes % Eosinophils % Basophils % Nucleated RBC % Absolute Neutrophils Absolute Lymphocytes Absolute Monocytes Absolute Eosinophils Absolute Basophils D-Dimer Sodium Potassium Chloride Carbon Dioxide Anion Gap BUN Creatinine Estimated GFR/1.73 m2 Glucose Calcium Magnesium 2.1 Total Bilirubin AST ALT Alkaline Phosphatase Troponin I Total Protein Albumin TSH 0.58 Urine Color Urine Clarity Urine pH Ur Specific [place] Urine Protein Urine Ketones Urine Blood Urine Nitrite Urine Bilirubin Urine Urobilinogen Ur Leukocyte Esterase Urine Glucose COVID-19 Source SARS-CoV-2 (PCR) [facility] Social History Smoking/Tobacco Use Status: Former Tobacco Use Smoking risk assessment performed?: Yes Alcohol Intake: current Alcohol Intake frequency: a few times a month Alcohol type: wine Drug use: Never Substance use type: does not use Do you feel safe at home: Yes Do you feel safe in your relationship?: Yes
--- NOTE | 2020-10-12 15:38 | CMDISCH_ITS ---
- If Service Date Differs Date of service: 10/12/20 Time of Service: 15:38 LACE Index Scoring Tool - Questions: Length of Stay (in days): 2 Acuity (Admit via E.D.?): Yes E.D. Visits: 2 - Answers: Total Score: 7 Risk of Readmission: Low Risk Care Management Discharge Reason for Hospitalization: Syncope, Head Injury, Bradycardia Discharge Plan: Deja has had no further symptoms and wants to be discharged home. She will wear a administrative office manager at discharge and follow up with her pcp. No new services ordered. Patient/Family Education Needs: Review discharge instructions and plan of care, which includes plan to follow up with her PCP on holter monitor results. Also, repeat outpatient chest CT in 6 months.
--- NOTE | 2020-10-12 16:00 | HOLTER_ITS ---
APPROVED REPORT Conclusion There is a 48-hour monitor ordered for indication of syncope. The patient was in normal sinus rhythm for the majority of the recording with an average heart rate o f 56 bpm. There were no episodes of ventricular tachycardia and rare PVCs. There were 5 episodes of supraventricular tachycardia with the longest lasting 5 beats. None of thes e were symptomatic. There were rare PACs. There were no episodes of atrial fibrillation, no pauses greater than 3 seconds and no evidence of hi gh degree heart block. There were 3 patient triggered events associated with ear ringing/pulsating and fatigue. None of the se were associated with arrhythmia.
== END 2020-10-12 16:30 | disposition home or self-care (01) ==
LOC: ER 20:35 → MS 20:53
PROVIDERS: Physician Assistant; Admitting Provider Family Medicine; Emergency Provider Student in an Organized Health Care Education/Training Program; Visit Provider Family Medicine
DX: R55 Syncope and collapse (principal); S09.90XA Unspecified injury of head, initial encounter; R00.1 Bradycardia, unspecified; I10 Essential (primary) hypertension; R53.1 Weakness; Z20.822 Contact with and (suspected) exposure to COVID-19; R01.1 Cardiac murmur, unspecified; R91.1 Solitary pulmonary nodule; Z87.891 Personal history of nicotine dependence; W17.81XA Fall down embankment (hill), initial encounter; Y93.H2 Activity, gardening and landscaping; Y92.096 Garden or yard of other non-institutional residence as the place of occurrence of the external cause
CPT/HCPCS: 36415; 36416; 71275; 80053; 82962; 87635; 93005; 96360; 96361; 99285; J1650; 70450; 71045; 81003; 83735; 84443; 84484; 85025; 85379; 93010; 93225; 93306; 99218; 99284; G0378; J3490

== ENCOUNTER 2020-10-12 16:00 | Outpatient (CLI) | payer OTHER, SELFPAY | END 2020-10-12 16:01 | LOC: CARDO 12-05 14:54 | PROVIDERS: Referring Provider Nurse Practitioner Acute Care; Visit Provider Internal Medicine Cardiovascular Disease | DX: R55 Syncope and collapse (principal); I47.1 Supraventricular tachycardia | CPT/HCPCS: 93227 ==

== ENCOUNTER 2020-10-17 09:13 | Outpatient (CLI) | payer OTHER, SELFPAY | END 2020-10-17 09:33 | PROVIDERS: Visit Provider Family Medicine | DX: R55 Syncope and collapse (principal) | CPT/HCPCS: 93227; 93226 ==

== ENCOUNTER 2020-11-22 02:06 | Outpatient (CLI) | payer OTHER, SELFPAY ==
--- NOTE | 2020-11-22 | DI.US_ITS ---
Exam(s) US CAROTID EXAM: US CAROTID CLINICAL HISTORY: CAROTID BRUIT,R09.89,MEMORY IMPAIRMENT,R41.3,HYPERLIPIDEMIA,E78.5. TECHNIQUE: Ultrasound carotids performed using grayscale, color-flow, and spectral Doppler imaging. COMPARISON: No exams were available for comparison FINDINGS: RIGHT CAROTID ARTERY: Plaque: Focal calcific plaque common carotid bulb Velocity elevation: None. LEFT CAROTID ARTERY: Plaque: Mild calcific plaque proximal left internal carotid artery and common carotid bulb. Velocity elevation: None. VERTEBRAL ARTERIES: Antegrade flow. Measurements: R Bulb: 86.1cm/s PS / 14.1cm/s ED R CCA: 70.7cm/s PS / 10.3cm/s ED R ECA: 117.6cm/s PS / 7.7cm/s ED R ICA Prox: 100.9cm/s PS /16.1cm/s ED R ICA Mid: 110.5cm/s PS / 10.3cm/s ED R ICA Distal: 113.1cm/s PS /17.4cm/s ED R Vert: 64.3cm/s PS / 10.3cm/s ED R SVR: 1.6 R DVR: 1.69 L Bulb: 102.2cm/s PS /10.3cm/s ED L CCA: 69.4cm/s PS / 11cm/s ED L ECA: 191.5cm/s PS /16.7cm/s ED L ICA Prox:102.2cm/s PS / 12.9cm/s ED L ICA Mid: 99.6cm/sPS / 19.3cm/s ED L ICA Distal: 125.3cm/s PS / 21.2cm/s ED L Vert: 90.6cm/s PS / 12.2cm/s ED L SVR: 1.81 L DVR: 1.93 IMPRESSION: Mild calcific plaque. No evidence for hemodynamically significant carotid stenosis. Criteria for Carotid Stenosis: Normal: ICA PSV <125 cm/s no plaque or intimal thickening is visible. <50% stenosis: ICA PSV <125 cm/s and plaque or intimal thickening is visible. 50-69% stenosis: ICA PSV is 125-250 cm/s and plaque is visible. >70% stenosis to near occlusion: ICA PSV >250 cm/s with visible plaque and luminal narrowing. DATA REPOSITORY:
== END 2020-11-22 02:26 ==
PROVIDERS: Visit Provider Nurse Practitioner Community Health
DX: R09.89 Other specified symptoms and signs involving the circulatory and respiratory systems (principal); R41.3 Other amnesia; I10 Essential (primary) hypertension; E78.5 Hyperlipidemia, unspecified; R01.1 Cardiac murmur, unspecified
CPT/HCPCS: 93880

== ENCOUNTER 2020-11-25 03:27 | Outpatient (CLI) | payer OTHER, SELFPAY ==
--- NOTE | 2020-11-25 | DI.MAMMO_ITS ---
Exam(s) MAMMO SCREENING EXAM: MAMMO SCREENING CLINICAL HISTORY: SCREENING, Z12.39. TECHNIQUE: Bilateral full field digital CC and MLO mammographic images were obtained with 3D tomosyn thesis and utilizing computer aided detection (CAD). COMPARISON: None FINDINGS: No significant radiograph findings in left breast. On 3D imaging of the right breast there is a noncalcified 3 x 3 millimeter nodule located 4.5 cm in f rom the nipple, as seen on the CC view, slightly medial of center. No malignant-appearing microcalcification groups in this region or elsewhere in either breast. There is no significant architectural distortion nor skin thickening-retraction. IMPRESSION: No radiographic evidence of malignancy in left breast. 3 x 3 millimeter noncalcified right breast nodule. Spot compression view and ultrasound recommended. BI-RADS Category 0 - Assessment Incomplete: Need additional imaging evaluation Breast Density - Category B - Scattered areas of fibroglandular density Breast density Category C or D implies that the patient has dense breast tissue. Dense breast tissue can make it harder to find cancer on a mammogram. Dense breast tissue is also associated with an incr eased risk of breast cancer. This information about the result of the mammogram report was provided to the patient to raise their awareness. Use this report when you speak with the patient about their risks for breast cancer, which includes their family history. At that time, you may recommend additional screening tests (Ultrasoun d or MRI) as these tests may add significant information. A negative radiographic report should not delay biopsy if a dominant or clinically suspicious mass is present. Up to ten percent of cancers are not identified on mammography. A negative report may reinforce clinical impression. Adenosis and dense breasts may obscure an underlying neoplasm. False positive reports average 6 to 10%. Patient will receive a letter notifying them of these results.
== END 2020-11-25 03:47 ==
PROVIDERS: Visit Provider Nurse Practitioner Community Health
DX: Z12.31 Encounter for screening mammogram for malignant neoplasm of breast (principal); R92.8 Other abnormal and inconclusive findings on diagnostic imaging of breast; N63.10 Unspecified lump in the right breast, unspecified quadrant
CPT/HCPCS: 77063; 77067

== ENCOUNTER 2020-12-13 02:28 | Outpatient (CLI) | payer MEDICARE, SELFPAY ==
--- NOTE | 2020-12-13 | DI.MAMMO_ITS ---
Exam(s) MG MAMMO SCREEN CALL BACK UNI US BREAST RT LIMITED EXAM: MG MAMMO SCREEN CALL BACK UNI and U/S breast RT limited CLINICAL HISTORY: F/U MAMMO, RT BREAST NODULE. TECHNIQUE: Craniocaudal and mediolateral oblique Full Field Digital Mammography views of the right b reast with Computer Aided Diagnosis followed by Tomosynthesis and right breast ultrasound. COMPARISON: Priors available for comparison. FINDINGS: Mammography/Tomosynthesis: Masses/Architectural Distortion: There is again seen a well-circumscribed nodule in the medial right breast 5 cm from the nipple. Microcalcifictions: No suspicious pleomorphic-type are seen. Skin Thickening/Nipple Retraction: None. Right breast US: The upper inner and lower inner quadrants of the right breast were evaluated sonogra phically. Echotexture: Normal appearance of the glandular tissue. Shadowing: No suspicious foci. Cyst: There is a 3 x 1 x 4 mm cyst at the 1 o'clock position of the right breast 4 cm from the nipple . This would appear to correspond to the mammographic abnormality. Solid lesions: None seen. Ductal dilation: None. IMPRESSION: 1. No evidence of malignancy is noted. 2. Unless there is more urgent need, follow-up screening mammography is recommended, as per [employer] [place] [employer] guidelines. 3. The findings were discussed with the patient on the date of the examination. BI-RADS Category 2 - Benign Findings Breast Density - Category B - Scattered areas of fibroglandular density Breast density Category C or D implies that the patient has dense breast tissue. Dense breast tissue can make it harder to find cancer on a mammogram. Dense breast tissue is also associated with an incr eased risk of breast cancer. This information about the result of the mammogram report was provided to the patient to raise their awareness. Use this report when you speak with the patient about their risks for breast cancer, which includes their family history. At that time, you may recommend additional screening tests (Ultrasoun d or MRI) as these tests may add significant information. A negative radiographic report should not delay biopsy if a dominant or clinically suspicious mass is present. Up to ten percent of cancers are not identified on mammography. A negative report may reinforce clinical impression. Adenosis and dense breasts may obscure an underlying neoplasm. False positive reports average 6 to 10%. Patient will receive a letter notifying them of these results.
== END 2020-12-13 02:48 ==
PROVIDERS: Visit Provider Nurse Practitioner Community Health
DX: R92.8 Other abnormal and inconclusive findings on diagnostic imaging of breast (principal); N60.01 Solitary cyst of right breast
CPT/HCPCS: 76642; 77063; 77067

== ENCOUNTER 2021-05-02 17:18 | Outpatient (REF) | payer MEDICARE, SELFPAY ==
[2021-05-02 20:16] LABS: ALT 20 U/L (14-59); AST 13 U/L (15-37); Albumin 3.7 g/dL (3.4-5.0); Alkaline Phosphatase 55 U/L (46-116); BUN 20 mg/dL (7-18); Bilirubin, Total 0.3 mg/dL (0.2-1.0); CREATININE 1.1 mg/dL (0.55-1.02); Calcium 8.9 mg/dL (8.5-10.1); Calculated LDL 80 mg/dL (<100); Chloride 107 mmol/L (98-107); Cholesterol 166 mg/dL (<200); Estimated GFR 47.21 (mL/min/1.73m2); Glucose 107 mg/dL (74-106); HDL Cholesterol 65 mg/dL (40-60); Potassium 4.4 mmol/L (3.5-5.1); Sodium 144 mmol/L (136-145); Total Protein 6.8 g/dL (6.4-8.2); Triglyceride 107 mg/dL (<150)
== END 2021-05-02 17:19 | disposition home or self-care (01) ==
LOC: NCHCN 17:18
PROVIDERS: Visit Provider Nurse Practitioner Family
DX: I10 Essential (primary) hypertension (principal); E78.5 Hyperlipidemia, unspecified
CPT/HCPCS: 80053; 80061

== ENCOUNTER 2021-07-04 18:57 | Outpatient (REF) | payer MEDICARE, SELFPAY ==
[2021-07-04 18:00] LABS: Anion Gap 6.6 mmol/L (3-11); BUN 22 mg/dL (7-18); CO2 29.4 mmol/L (21.0-32.0); CREATININE 0.9 mg/dL (0.55-1.02); Calcium 9.2 mg/dL (8.5-10.1); Chloride 105 mmol/L (98-107); Estimated GFR 59.51 (mL/min/1.73m2); Glucose 94 mg/dL (74-106); Potassium 4.8 mmol/L (3.5-5.1); Sodium 141 mmol/L (136-145)
[2021-07-05 05:40] LABS: Vitamin B12 288 pg/mL (193-986)
== END 2021-07-04 18:58 | disposition home or self-care (01) ==
LOC: NCHCN 18:57
PROVIDERS: PCP Nurse Practitioner Family; Visit Provider Nurse Practitioner Family
DX: I10 Essential (primary) hypertension (principal); F03.90 Unspecified dementia, unspecified severity, without behavioral disturbance, psychotic disturbance, mood disturbance, and anxiety
CPT/HCPCS: 80048; 82607

== ENCOUNTER 2022-12-31 17:58 | Outpatient (REF) | payer MEDICARE, SELFPAY ==
[2022-12-31 22:19] LABS: Anion Gap 8.3 mmol/L (3-11); BUN 26 mg/dL (7-18); CO2 26.7 mmol/L (21.0-32.0); Calcium 9.5 mg/dL (8.5-10.1); Calculated LDL 67 mg/dL (<100); Chloride 108 mmol/L (98-107); Cholesterol 155 mg/dL (<200); Estimated GFR 54.53 (mL/min/1.73m2); Glucose 92 mg/dL (74-106); HDL Cholesterol 77 mg/dL (40-60); Potassium 4.6 mmol/L (3.5-5.1); Sodium 143 mmol/L (136-145); Triglyceride 58 mg/dL (<150); Vitamin B12 319 pg/mL (193-986)
== END 2022-12-31 17:59 | disposition home or self-care (01) ==
LOC: NCHCN 17:58
PROVIDERS: PCP Nurse Practitioner Family; Visit Provider Nurse Practitioner Family
DX: I10 Essential (primary) hypertension (principal); F03.90 Unspecified dementia, unspecified severity, without behavioral disturbance, psychotic disturbance, mood disturbance, and anxiety
CPT/HCPCS: 80048; 80061; 82607

== ENCOUNTER 2023-01-28 17:40 | Emergency (ER) | payer MEDICARE, SELFPAY ==
[2023-01-28 17:46] VITALS: BP 120/60; PULSE 96; RESP 16; TEMP 36.6; O2SAT 99
--- NOTE | 2023-01-28 18:02 | NUR.NOTE ---
Nursing Note: CHRISTOS changed to 4. The 2 was entered in error, clicked the wrong number
--- NOTE | 2023-01-28 18:15 | DI.RAD_ITS ---
Exam(s) XR CHEST 2V PA LATERAL EXAM: XR CHEST 2V PA LATERAL CLINICAL HISTORY: cough for 2 weeks TECHNIQUE: 2D digital imaging was performed of the chest. Two images were obtained. PA and lateral views were obtained. COMPARISON: CR XR PORTABLE CHEST AP from 10/11/2020 FINDINGS: MEDIASTINUM: Normal. HEART: Normal. PULMONARY VASCULATURE: Normal. LUNGS: The lungs appear hyperinflated. No focal consolidating infiltrates are seen. PLEURAL SPACE: No pleural effusion or pneumothorax. BONE:Within normal limits for the patient's age. OTHER FINDINGS:Normal. IMPRESSION: No acute pulmonary findings. DATA REPOSITORY: RADIATION DOSE DELIVERED:
--- NOTE | 2023-01-28 19:27 | DI.VRAD_ITS ---
PROCEDURE INFORMATION: Exam: XR Chest Exam date and time: 01/28/2023 6:33 PM Age: 87 years old Clinical indication: Cough TECHNIQUE: Imaging protocol: Radiologic exam of the chest. Views: 2 views. COMPARISON: CT CHEST PE CTA 10/11/2020 6:51 PM FINDINGS: Lungs: No active pulmonary infiltrate. Pleural spaces: Unremarkable. No pleural effusion. No pneumothorax. Heart/Mediastinum: Unremarkable. No cardiomegaly. Bones/joints: Old, healed right humeral neck fracture. Mild thoracolumbar scoliosis and degenerative disc changes. No acute fracture. IMPRESSION: No acute disease Dictated and Authenticated by: Adam Mei MD. Ordering:GENEVIEVE Carmona MD
[2023-01-28] MEDS: Dexamethasone 4 MG TAB PO (19:56)
[2023-01-28] MEDS: Doxycycline Hyclate 100 MG CAP PO (19:56)
--- NOTE | 2023-01-28 21:31 | ED.GENADUL_ITS ---
Discharge Plan Disposition Patient Disposition: Home Condition: Stable Discharge Details Clinical Impression: Bronchitis Primary Care Provider: Andreina Kee ED Provider: Kristine Green Home Meds and New Rx's Prescriptions: New doxycycline hyclate 100 mg tablet 100 mg PO BID 7 Days Qty: 14 0RF Continued lisinopril 5 mg tablet 5 mg PO ONCE Patient Comments: Take 1 tablet by mouth once a day TAKE 1 TABLET BY MOUTH EVERY DAY rosuvastatin 5 mg tablet 5 mg PO ONCE Patient Comments: Take 1 tablet by mouth every night Discharge Instructions Instructions: Acute Bronchitis (ED) Additional Instructions: Take the antibiotic as prescribed Yogurt daily while on antibiotic You received a single dose of steroid here, this will help with the cough for the next several days Return earlier should you have new or worsening complaints recommend following up with your doctor if you are not feeling symptomatically improved in 2 to 3 days Referrals: Andreina Kee [Primary Care Provider] - Discharge Data Discharge Date/Time-TO BE ENTERED AT DEPARTURE: 01/28/23 20:08 Medical Decision Making 87-year-old female presenting with report of cough, subjective fevers, shortness of breath, well in appearance, vital stable Chest x-ray per radiology interpretation my review does not show acute abnormality Given 14 days of symptoms will treat for bronchitis with doxycycline and a single dose of Decadron for cough Recommendation to follow-up with primary care physician in 2 to 3 days with persistent symptoms Return precautions reviewed and patient expressed understanding HPI General Date/Time Provider Initiated Documentation: 01/28/23 18:02 . HPI Narrative: 87-year-old female presenting with report of upper respiratory symptoms for the past 2 weeks. reportedly sick with similar symptoms. Denies any chest pain or shortness of breath. Denies any calf pain or swelling. Upper respiratory including rhinorrhea and per patient mostly concerned about persistent cough for 14 days. Denies fever today but states had subjective fever yesterday. Related Data Home Medications Medication Instructions Recorded Confirmed doxycycline hyclate 100 mg tablet 100 mg PO BID 7 days #14 tabs 01/28/23 lisinopril 5 mg tablet 5 mg PO ONCE 01/28/23 01/28/23 rosuvastatin 5 mg tablet 5 mg PO ONCE 01/28/23 01/28/23 Previous Rx's Medication Instructions Recorded doxycycline hyclate 100 mg tablet 100 mg PO BID 7 days #14 tabs 01/28/23 Allergies Allergy/AdvReac Type Severity Reaction Status Date / Time shellfish derived Allergy Anaphylaxis Unverified 01/28/23 18:15 General Stated Complaint: RespSymp CHRISTOS: 4 PFSH All Active Problems (Updated 01/28/23 @ 19:44 by EDIL Viveros) Bronchitis (Acute) Lung nodule (Acute) Head injury (Acute) Systolic murmur (Acute) Laceration (Acute) Syncope (Chronic) Bradycardia (Acute) Social History Smoking/Tobacco Use Status: Former Tobacco Use Smoking risk assessment performed?: Yes Alcohol Intake: current Alcohol Intake frequency: a few times a month Alcohol type: wine Drug use: Never Substance use type: does not use Do you feel safe at home: Yes Do you feel safe in your relationship?: Yes Course Vital Signs Vital signs: Vital Signs Temperature 36.6 C 01/28/23 17:46 Pulse 96 H 01/28/23 17:46 Respiratory Rate 16 01/28/23 17:46 Blood Pressure 120/60 01/28/23 17:46 Pulse Oximetry 99 01/28/23 17:46 Temperature 36.6 C 01/28/23 17:46 Temperature Source Temporal Artery Scan 01/28/23 17:46 Pulse 96 H 01/28/23 17:46 Respiratory Rate 16 01/28/23 17:46 Respiratory Effort Normal 01/28/23 18:13 Respiratory Depth Normal 01/28/23 18:13 Blood Pressure 120/60 01/28/23 17:46 Blood Pressure Position Sitting 01/28/23 17:46 Pulse Oximetry 99 01/28/23 17:46 Oxygen Delivery Method Room Air 01/28/23 17:46 Oxygen Flow Rate 0 01/28/23 17:46 Pain Level 0 01/28/23 17:46
== END 2023-01-28 20:08 | disposition home or self-care (01) ==
PROVIDERS: Emergency Provider Physician Assistant; PCP Nurse Practitioner Family
DX: J40 Bronchitis, not specified as acute or chronic (principal)
CPT/HCPCS: 99283; 71046; J8540

== ENCOUNTER 2023-04-30 18:34 | Outpatient (REF) | payer MEDICARE, SELFPAY ==
[2023-04-30 21:23] LABS: Abs Immature Grans 0.02 10^3/uL (0.0-0.06); Absolute Basophil Count 0.02 10^3/uL (0.0-0.2); Absolute Eosinophil Count 0.07 10^3/uL (0.0-0.7); Absolute Lymphocyte Count 2.18 10^3/uL (1.2-3.4); Absolute Monocyte Count 0.53 10^3/uL (0.1-0.8); Absolute Neutrophil Count 3.71 10^3/uL (1.2-6.7); Basophils % 0.3; Eosinophils % 1.1; HCT 37.8 % (36.0-46.0); HGB 12.1 g/dL (11.2-15.7); Immature Grans % 0.3; Lymphocytes % 33.4; MCV 94 fL (80-95); MPV 11.7 fL (8.0-11.0); Monocytes % 8.1; Neutrophils % 56.8; Platelet Count 177 10^3/uL (130-400); RBC 4.04 10^6/uL (3.93-5.22); RDW 14.3 % (11.7-14.6); RDW-SD 49.7 fL; WBC 6.53 10^3/uL (4.4-10.8)
[2023-04-30 21:25] LABS: ESR 7 mm/hr (0-30)
[2023-04-30 21:44] LABS: ALT 39 U/L (14-59); AST 31 U/L (15-37); Albumin 3.7 g/dL (3.4-5.0); Alkaline Phosphatase 58 U/L (46-116); Anion Gap 5.9 mmol/L (3-11); BUN 23 mg/dL (7-18); Bilirubin, Total 0.6 mg/dL (0.2-1.0); CO2 29.1 mmol/L (21.0-32.0); CREATININE 0.9 mg/dL (0.55-1.02); Calcium 9.2 mg/dL (8.5-10.1); Chloride 107 mmol/L (98-107); Estimated GFR 61.87 (mL/min/1.73m2); Glucose 97 mg/dL (74-106); Potassium 4.5 mmol/L (3.5-5.1); Sodium 142 mmol/L (136-145)
[2023-05-01 18:01] LABS: CRP, High Sensitivity <0.34 mg/L (See Note)
== END 2023-04-30 18:35 | disposition home or self-care (01) ==
LOC: NCHCN 18:34
PROVIDERS: PCP Nurse Practitioner Family; Visit Provider Nurse Practitioner Family
DX: R63.4 Abnormal weight loss (principal)
CPT/HCPCS: 80053; 85652; 86141; 84443; 85025

== ENCOUNTER → 2023-05-10 00:34 | Outpatient (CLI) | payer MEDICARE, SELFPAY ==
--- NOTE | 2023-05-10 | DI.RAD_ITS ---
Exam(s) XR CHEST 2V PA LATERAL EXAM: XR CHEST 2V PA LATERAL CLINICAL HISTORY: ABNL WT LOSS, R63.4, FALLS TECHNIQUE: 2D digital imaging was performed of the chest. Two images were obtained. PA and lateral views were obtained. COMPARISON: CR,XR XR CHEST 2V PA LATERAL from 01/28/2023 FINDINGS: MEDIASTINUM: Normal. HEART: Mild cardiomegaly. PULMONARY VASCULATURE: Normal. LUNGS: Clear. PLEURAL SPACE: No pleural effusion or pneumothorax. BONE:Within normal limits for the patient's age. OTHER FINDINGS:Normal. IMPRESSION: No acute pulmonary findings. DATA REPOSITORY: RADIATION DOSE DELIVERED:
[2023-05-10] MEDS: Barium Sulfate 2% W/V-Berry Smoothie 450 ML BTL PO (08:13)
[2023-05-10] MEDS: Barium Sulfate 2% W/V-Creamy Vanilla Smoothie 450 ML BTL PO (08:14)
[2023-05-10] MEDS: Omnipaque 350 MG/ML 100 ML BTL IJ (10:39)
[2023-05-10] MEDS: Normal Saline - Diluent 50 ML VIAL IJ (10:39)
--- NOTE | 2023-05-10 10:49 | DI.CT_ITS ---
Exam(s) CT HEAD WO EXAM: CT HEAD WO CLINICAL HISTORY: FALLS, UNINTENTION WT LOSS,ADVANCING DEMENTA. TECHNIQUE: Imaging Protocol: Axial computed tomography images with coronal and sagittal reformatted images were created and reviewed COMPARISON: CT CT HEAD WO from 06/20/[address] HEAD WO from 10/12/2020 FINDINGS: Ventricles and Extra axial spaces: Normal in size and morphology for the patient's age. Hemorrhage: None. Cerebral parenchyma: There are areas of decreased attenuation in the white matter most consistent wit h chronic microvascular ischemic disease. No mass effect is identified. No evidence of an acute ter ritorial infarct are seen. Midline shift: None. Brainstem/Cerebellum: Normal. Calvarium: Normal. Visualized Paranasal sinuses/Mastoids: Clear. Soft Tissues: Unremarkable. IMPRESSION: No acute intracranial process. RADIATION DOSE DELIVERED: 639.05mGy.cm Total DLP DATA REPOSITORY: All CT scans at this facility are submitted to the National Radiology Data Registry (NRDR) Dose Index Registry (DIR) with the [employer] ([employer]). RADIATION OPTIMIZATION: All CT scans at this facility use at least one of these dose optimization te chniques: automated exposure control; mA and/or kV adjustment per patient size (includes targeted exa ms where dose is matched to clinical indication); or iterative reconstruction.
--- NOTE | 2023-05-10 11:17 | DI.CT_ITS ---
Exam(s) CT ABDOMEN PELVIS W EXAM: CT ABDOMEN PELVIS W CLINICAL HISTORY: ABNL WT LOSS,R63.4,FALLS,ANT/POST ABD/PELVIC PAIN TECHNIQUE: Imaging Protocol: Axial computed tomography images with coronal and sagittal reformatted images were created and reviewed. CONTRAST MATERIAL: Intravenous: Omnipaque 350 Contrast volume:100 mL Oral: Yes COMPARISON: CT CT CHEST PE CTA from 10/11/2020 FINDINGS: ABDOMEN: Lung Bases: There is a small pericardial effusion. There is dependent atelectasis. Liver: Normal density. There is a hepatic cyst in the left lobe of the liver. No discrete solid hepa tic mass is seen. There are few tiny hypodensities in the liver which are too small for further marlene acterization. Portal, Superior Mesenteric, and Splenic Veins: Unremarkable. Gallbladder and Biliary Tract: No stones are seen. There is a peripheral calcification of the gallbl adder. No biliary ductal dilatation. Pancreas: Normal density, no abnormal calcifications or inflammatory process. Spleen: Granuloma are present. Adrenals: No masses seen. Kidneys: Normal size, contour and axis. No radiodense stones or obstructive uropathy. No masses seen. Abdominal Aorta: Abdominal portion non-dilated. Atherosclerotic calcification. Bowel: No obstruction or bowel wall thickening. There is a moderate amount of stool in the colon. Th ere is a normal appendix. No evidence of bowel wall thickening or obstruction is seen. Peritoneal Cavity: No ascites, collection or mesenteric inflammatory response. No free air. Lymph Nodes: Within normal limits. Bones: Within normal limits for the patient's age. Soft Tissues: There is mild edema seen in the subcutaneous tissues diffusely. No focal fluid collect ion is seen in the subcutaneous tissues. Incidental note is made of intramuscular lipoma in the righ t sartorius muscle. PELVIS: Bladder: There is mild thickening of the wall of the urinary bladder particularly anteriorly and at i ts base. Reproductive Organs: Unremarkable as visualized. Lymph Nodes: Within normal limits. Bones: Within normal limits for the patient's age. IMPRESSION: 1. There is a small pericardial effusion. 2. There is a porcelain gallbladder. There is no biliary ductal dilatation. 3. Mild thickening of the wall of the urinary bladder. This may be due to underdistention. Chronic bladder outlet obstruction, cystitis or neoplasm can not be excluded. 4. Constipation. RADIATION DOSE DELIVERED: 650.9mGy.cm Total DLP DATA REPOSITORY: All CT scans at this facility are submitted to the National Radiology Data Registry (NRDR) Dose Index Registry (DIR) with the [employer] (ACR). RADIATION OPTIMIZATION: All CT scans at this facility use at least one of these dose optimization te chniques: automated exposure control; mA and/or kV adjustment per patient size (includes targeted exa ms where dose is matched to clinical indication); or iterative reconstruction.
== END ==
PROVIDERS: PCP Nurse Practitioner Family; Visit Provider Nurse Practitioner Family
DX: R63.4 Abnormal weight loss (principal)
CPT/HCPCS: 70450; 71046; 74177; J3490

== ENCOUNTER 2024-09-21 13:13 | Emergency (ER) | payer MEDICARE, MEDICAID, SELFPAY ==
[2024-09-21 13:21] VITALS: BP 123/77; PULSE 96; RESP 18; TEMP 36.6; O2SAT 95
--- NOTE | 2024-09-21 13:30 | RT.EKG_ITS ---
APPROVED REPORT Exam: Resting ECG Reason for Exam: pain all over Patient Location: E HR:93 bpm ECG Measurements Heart Rate 93 AXIS MD 148 P 0 QRSd 146 QRS -79 QT 408 T 81 QTc 509 Conclusion Ventricular-paced rhythm
--- NOTE | 2024-09-21 14:30 | DI.RAD_ITS ---
Exam(s) XR FOOT LT COMPLETE EXAM: XR FOOT LT COMPLETE CLINICAL HISTORY: pain plantar surface of foot. TECHNIQUE: 2D digital imaging was performed. COMPARISON: No exams were available for comparison FINDINGS: 3 views No evidence of acute fracture or diastasis of the Lisfranc joint. Age-related osteopenia noted. No significant osseous lesions. No erosions evident. Mild degenerative changes at the great toe metatarsophalangeal joint. No erosions at this level. There is an enthesophyte noted at the posterior calcaneus Achilles insertion site. IMPRESSION: No acute osseous findings in the left foot. DATA REPOSITORY: RADIATION DOSE DELIVERED:
--- NOTE | 2024-09-21 14:45 | W.ED.GENAD ---
Discharge Plan Disposition Patient Disposition: Home Condition: Stable Discharge Details Clinical Impression: Muscle spasm, Bone spur of left foot Primary Care Provider: Andreina Kee ED Provider: Sergio Jones Home Meds and New Rx's Prescriptions: Continued acetaminophen 500 mg capsule 1,000 mg PO BID PRN haloperidol 0.5 mg tablet 0.5 - 1 mg PO Q4H PRN PRN (Reason: hallucination agitation) Qty: 10 0RF docusate sodium 100 mg capsule 100 mg PO DAILY PRN (Reason: constipation) Qty: 60 3RF lisinopril 5 mg tablet 5 mg PO DAILY Qty: 30 3RF rosuvastatin 5 mg tablet 5 mg PO DAILY Qty: 30 3RF mirtazapine 15 mg tablet 15 mg PO QHS Qty: 30 3RF Discharge Instructions Additional Instructions: Make sure you are staying hydrated with it being warm up. Follow-up with your primary care provider as scheduled. If you feel significantly more ill or have new symptoms such as difficulty breathing or chest pain return to the emergency department for reevaluation HPI General Date/Time Provider Initiated Documentation: 09/21/24 13:59. Information obtained by: patient and family. History of Present Illness 88 year old F presents to the emergency department with the chief complaint of joint pain, spasms in fingers, left foot pain and lump, described as moderate, Patient started experiencing this day(s) (2) and it has been intermittent. No relieving factors improve symptom(s), No exacerbating factors reported . Patient notes denies chest pain, fever/chills, nausea/vomiting and shortness of breath. Patient did receive the following treatments prior to arrival, none Related Data Home Medications ?Medication ?Instructions ?Recorded ?Confirmed acetaminophen 500 mg capsule 1,000 mg PO BID PRN 05/20/23 09/21/24 haloperidol 0.5 mg tablet 0.5 - 1 mg (1 - 2 x 0.5 mg) PO Q4H 06/29/24 09/21/24 PRN PRN hallucination agitation #10 tabs mirtazapine 15 mg tablet 15 mg PO QHS #30 tabs 08/17/24 09/21/24 docusate sodium 100 mg capsule 100 mg PO DAILY PRN constipation 09/07/24 09/21/24 #60 caps lisinopril 5 mg tablet 5 mg PO DAILY #30 tabs 09/07/24 09/21/24 rosuvastatin 5 mg tablet 5 mg PO DAILY #30 tabs 09/07/24 09/21/24 Previous Rx's ?Medication ?Instructions ?Recorded haloperidol 0.5 mg tablet 0.5 - 1 mg (1 - 2 x 0.5 mg) PO Q4H 06/29/24 PRN PRN hallucination agitation #10 tabs mirtazapine 15 mg tablet 15 mg PO QHS #30 tabs 08/17/24 docusate sodium 100 mg capsule 100 mg PO DAILY PRN constipation 09/07/24 #60 caps lisinopril 5 mg tablet 5 mg PO DAILY #30 tabs 09/07/24 rosuvastatin 5 mg tablet 5 mg PO DAILY #30 tabs 09/07/24 Allergies Allergy/AdvReac Type Severity Reaction Status Date / Time shellfish derived Allergy Anaphylaxis Unverified 09/21/24 13:27 aspirin AdvReac Unknown Unknown Unverified 09/21/24 13:27 General Stated Complaint: [facility]: 3 Review of Systems All systems reviewed & are unremarkable except as noted in HPI and below Constitutional Constitutional: Denies chills, Denies fever(s) and Denies weakness Cardiovascular Cardiovascular: Denies chest pain and Denies dyspnea Respiratory Respiratory: Denies cough and Denies dyspnea Gastrointestinal Gastrointestinal: Denies abdominal pain, Denies nausea and Denies vomiting Musculoskeletal Musculoskeletal: Reports arthralgias Neurologic Neurologic: Denies weakness Exam Const General: no acute distress Orientation: alert [facility] Head: normal to inspection Ears: external ears normal General nose exam: external nose normal Mouth: moist mucous membranes Eyes General: appearance normal, both eyes and all related structures Neck Neck: normal visual inspection Resp Effort & Inspection: normal respiratory effort and able to speak in complete sentences Cardio Rate: regular rate Skin General skin exam: no rashes or lesions noted Neuro General: patient alert Extrem General: full ROM and capillary refill normal Psych Mental Status: mental status grossly normal Course Vital Signs Vital signs: Vital Signs Temperature 36.6 C 09/21/24 13:21 Pulse 96 H 09/21/24 13:21 Respiratory Rate 18 09/21/24 13:21 Blood Pressure 123/77 09/21/24 13:21 Pulse Oximetry 95 09/21/24 13:21 Temperature 36.6 C 09/21/24 13:21 Temperature Source Oral 09/21/24 13:21 Pulse 96 H 09/21/24 13:21 Respiratory Rate 18 09/21/24 13:21 Blood Pressure 123/77 09/21/24 13:21 Blood Pressure Position Sitting 09/21/24 13:21 Pulse Oximetry 95 09/21/24 13:21 Oxygen Delivery Method Room Air 09/21/24 13:21 Oxygen Flow Rate 0 09/21/24 13:21 Medical Decision Making 88-year-old female with a history of dementia, pacemaker, who presents with her son who both provide history that for the last day or 2 she has been having spasming of her fingers, pain in all of her joints and also feels like she has a marble under her left foot. Denies any chest pain, difficulty breathing, vomiting, fevers or chills. She says right now she has no symptoms. On exam there is no swelling of her joints. There is no tenderness in her hands. She does have what feels like a small bone spur on the plantar surface of her left foot just proximal to the big toe. There is no erythema. There is no swelling of the legs. She has no calf tenderness. She has intact sensation and cap refill in her feet. I suspect arthritis versus possibly having carpopedal spasms and she likely has a bone spur in her foot. I will check basic labs to evaluate for possible electrolyte abnormality and also obtain an x-ray of the foot. X-ray and labs show no significant changes from baseline. Patient is stable and still asymptomatic. Given reassuring workup I feel she is stable for discharge and can follow-up with her PCP, return precautions given Differential Diagnosis Differential Diagnosis: Arthritis, carpopedal spasms, bone spur Lab Data Lab results reviewed: Yes I reviewed the patient's lab results. ECG Data Attestation: I personally reviewed and interpreted this ECG (s) as follows: Prior ECG tracings: available for review Interpretation: Paced rhythm, rate of 93, no STEMI PFSH All Active Problems (Updated 09/21/24 @ 17:47 by Sergio Jones MD) Bone spur of left foot (Acute) Muscle spasm (Acute) Hallucination (Acute) Leg swelling (Acute) Anxiety (Chronic) Family circumstance (Acute) Back pain (Acute) Agitation due to dementia (Acute) ACP (advance care planning) (Acute) Palliative care patient (Acute) Mixed Alzheimer's and vascular dementia (Acute) Lung nodule (Acute) Head injury (Acute) Systolic murmur (Acute) Laceration (Acute) Syncope (Chronic) Bradycardia (Acute) Medical History Constipation Alzheimer disease Postsurgical cardiac pacemaker in situ Heart murmur Secondary cataract Posterior rhinorrhea Essential hypertension Hyperlipidemia Unintentional weight loss History of fall Acquired deformity of toe Carotid bruit Vitreous degeneration, bilateral Cardiovascular disease History of sick sinus syndrome Vascular dementia Surgical History Hx of cataract surgery Family History Father Stroke Daughter Thyroid disease Brain tumor Son Heart disease Heart attack PTSD (post-traumatic stress disorder) Social History Smoking/Tobacco Use Status: Former Tobacco Use Smoking risk assessment performed?: Yes Alcohol Intake: current Alcohol Intake frequency: a few times a month Alcohol type: wine Drug use: Never Substance use type: does not use Do you feel safe at home: Yes Do you feel safe in your relationship?: Yes
[2024-09-21 15:38] VITALS: BP 123/77; PULSE 96; RESP 15; RESP 18; TEMP 36.6; O2SAT 95
[2024-09-21 15:54] LABS: Abs Immature Grans 0.02 10^3/uL (0.0-0.06); HCT 34.8 % (36.0-46.0); HGB 11.2 g/dL (11.2-15.7); Immature Grans % 0.3 %; MCH 30.5 pg (27.0-33.0); MCHC 32.2 % (32.0-36.0); MCV 95 fL (80-95); MPV 11.1 fL (8.0-11.0); Platelet Count 179 10^3/uL (130-400); RBC 3.67 10^6/uL (3.93-5.22); RDW 13.0 % (11.7-14.6); RDW-SD 44.9 fL; WBC 6.00 10^3/uL (4.4-10.8)
[2024-09-21 17:20] LABS: ALT 28 U/L (14-59); AST 21 U/L (15-37); Albumin 3.8 g/dL (3.4-5.0); Alkaline Phosphatase 71 U/L (46-116); Anion Gap 7.5 mmol/L (3-11); BUN 37 mg/dL (7-18); Bilirubin, Total 0.5 mg/dL (0.2-1.0); CO2 27.5 mmol/L (21.0-32.0); Calcium 9.0 mg/dL (8.5-10.1); Chloride 105 mmol/L (98-107); Estimated GFR 43.54 (mL/min/1.73m2); Glucose 84 mg/dL (74-106); Magnesium 2.1 mg/dL (1.8-2.4); Potassium 4.4 mmol/L (3.5-5.1); Sodium 140 mmol/L (136-145); Total Protein 7.1 g/dL (6.4-8.2)
[2024-09-21 18:16] VITALS: BP 123/77; PULSE 96; RESP 15; TEMP 36.6; O2SAT 95
== END 2024-09-21 18:16 | disposition home or self-care (01) ==
PROVIDERS: Emergency Provider Emergency Medicine; PCP Nurse Practitioner Family
DX: M62.838 Other muscle spasm (principal); M77.8 Other enthesopathies, not elsewhere classified
CPT/HCPCS: 99285; 99283; 36415; 80053; 93005; 73630; 83735; 85025; 93010